=== PATIENT | male | born 1985 | race Caucasian/White ===

== ENCOUNTER → 2020-08-27 | Outpatient (CLI) | payer OTHER ==
[~2020-08-27] MED LIST: ASPIRIN CHEWABL81 MG PO; NITROSTAT0.4 MG SL; PROTONIX40 MG PO
== END ==
LOC: KOH-I 14:25
DX: R09.89 Other specified symptoms and signs involving the circulatory and respiratory systems (principal)
CPT/HCPCS: 76536

== ENCOUNTER 2020-09-20 21:22 | Emergency (ER) | payer OTHER ==
[~2020-09-20 21:22] MED LIST changes: -PROTONIX40 MG PO
[2020-09-20 22:06] LABS: HEMOGLOBIN 14.5 gm/dl (14.0-17.5); RED BLOOD COUNT 5.16 M/UL (4.20-5.50); WHITE BLOOD COUNT 11.8 K/UL (4.5-11.0)
[2020-09-20 22:24] LABS: BUN/CREATININE RATIO 18 (0-10)
[2020-09-21] MEDS ORDERED: PROTONIX40 MG PO (02:46)
== END 2020-09-21 03:50 | disposition home or self-care (01) ==
LOC: ER1 21:22
PROVIDERS: Family Medicine
DX: K21.9 Gastro-esophageal reflux disease without esophagitis (principal); I10 Essential (primary) hypertension; Z86.718 Personal history of other venous thrombosis and embolism; Z86.711 Personal history of pulmonary embolism
CPT/HCPCS: 36415; 71046; 80053; 82550; 82553; 83690; 83874; 84484; 85025; 93005; 99285

== ENCOUNTER → 2020-09-28 | Outpatient (CLI) | payer OTHER ==
[~2020-09-28] MED LIST changes: +PROTONIX40 MG PO
== END ==
LOC: KOH-I 08:53
DX: R10.11 Right upper quadrant pain (principal); K76.0 Fatty (change of) liver, not elsewhere classified; K82.8 Other specified diseases of gallbladder
CPT/HCPCS: 76700

== ENCOUNTER 2021-11-23 22:01 | Emergency (ER) | payer BC, OTHER ==
[2021-11-23 22:54] LABS: HEMOGLOBIN 15.1 gm/dl (14.0-17.5); RED BLOOD COUNT 5.37 M/UL (4.20-5.50); WHITE BLOOD COUNT 11.5 K/UL (4.5-11.0)
[2021-11-23 23:17] LABS: BUN/CREATININE RATIO 16 (0-10)
== END 2021-11-24 00:29 | disposition home or self-care (01) ==
LOC: ER1 22:01
DX: R10.13 Epigastric pain (principal); I10 Essential (primary) hypertension; Z90.49 Acquired absence of other specified parts of digestive tract
CPT/HCPCS: 80053; 81001; 82550; 82553; 83690; 84484; 85025; 93005; 96374; 96375; 99284; J1885; J2405

== ENCOUNTER → 2022-01-05 | Outpatient (CLI) | payer BC, OTHER | LOC: ECHO 10:00 | DX: R94.31 Abnormal electrocardiogram [ECG] [EKG] (principal) | CPT/HCPCS: ECHO; 93306 ==